=== PATIENT | female | born 1955 | race Caucasian/White ===

== ENCOUNTER 2017-04-19 21:40 | Emergency (ER) | payer OTHER ==
[~2017-04-19] VITALS: Ht 160 cm; Wt 59.0 kg
[2017-04-19] MEDS ORDERED: TETANUS/DIPHTHERIA TOXOID ADULT 0.5 ML VIAL IM ONE (21:45)
[2017-04-19] MEDS: LIDOCAINE HCL 1% 50 ML VIAL INFIL ONE ×2 (21:45→22:21)
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
[2017-04-19 21:50] VITALS: BP 158/102; PULSE 78; RESP 18; TEMP 98.2; O2SAT 99
--- NOTE | 2017-04-19 22:27 | RADRPT ---
EXAM DATE/TIME: 04/19/2017 22:01 [facility] COMPARISON: No previous studies available for comparison. INDICATIONS : Trauma. Fall. Right frontal laceration. RADIATION DOSE: 55.86 CTDIvol (mGy) MEDICAL HISTORY : None SURGICAL HISTORY : None. ENCOUNTER: Initial ACUITY: 1 day PAIN SCALE: 0/10 LOCATION: cranial TECHNIQUE: Multiple contiguous axial images were obtained of the head. Using automated exposure control and adj ustment of the mA and/or kV according to patient size, radiation dose was kept as low as reasonably a chievable to obtain optimal diagnostic quality images. DICOM format image data is available electro nically for review and comparison. FINDINGS: There is no evidence for intracranial hemorrhage, mass effect, mass lesions, edema, or extra-axial fl uid collections. The visualized bony structures appear intact. The ventricles are normal size for t he patient's age. There are no signs of acute infarction for technique. There is moderate mucoperios teal thickening within multiple sinuses worse involving the right sinuses. CONCLUSION: Unremarkable study except for chronic sinusitis. Richa Babcock MD on April 19, 2017 at 22:25 Board Certified Radiologist. This report was verified electronically.
--- NOTE | 2017-04-19 22:31 | RADRPT ---
EXAM DATE/TIME: 04/19/2017 22:01 [facility] COMPARISON: No previous studies available for comparison. INDICATIONS : Trauma. Fall. RADIATION DOSE: 24.85 CTDIvol (mGy) MEDICAL HISTORY : None SURGICAL HISTORY : None. ENCOUNTER: Initial ACUITY: 1 day PAIN SCALE: 0/10 LOCATION: neck TECHNIQUE: Volumetric scanning of the cervical spine was performed. Multiplanar reconstructions in the sagittal, coronal and oblique axial planes were performed. Using automated exposure control and adjustment o f the mA and/or kV according to patient size, radiation dose was kept as low as reasonably achievable to obtain optimal diagnostic quality images. DICOM format image data is available electronically f or review and comparison. FINDINGS: No significant subluxation or soft tissue swelling is seen. No definite fracture is seen for techniqu e. C2-C3: No appreciable compromised to the thecal sac, exiting nerve roots are seen. The neural myah marina are patent bilaterally. No appreciable thecal sac stenosis is seen. C3-C4: No appreciable compromised to the thecal sac, exiting nerve roots are seen. The neural myah marina are patent bilaterally. No appreciable thecal sac stenosis is seen. C4-C5: No appreciable compromised to the thecal sac, exiting nerve roots are seen. The neural myah marina are patent bilaterally. No appreciable thecal sac stenosis is seen. C5-C6: No appreciable compromised to the thecal sac, exiting nerve roots are seen. The neural myah marina are patent bilaterally. No appreciable thecal sac stenosis is seen. C6-C7: No appreciable compromised to the thecal sac, exiting nerve roots are seen. The neural myah marina are patent bilaterally. No appreciable thecal sac stenosis is seen. C7-T1: No appreciable compromised to the thecal sac, exiting nerve roots are seen. The neural myah marina are patent bilaterally. No appreciable thecal sac stenosis is seen CONCLUSION: Unremarkable study. Richa Babcock MD on April 19, 2017 at 22:27 Board Certified Radiologist. This report was verified electronically.
[2017-04-19] MEDS ORDERED: LIDOCAINE HCL 1% 50 ML VIAL INFIL ONE (22:45)
[2017-04-19 23:02] VITALS: BP 143/91
== END 2017-04-19 23:05 | disposition home or self-care (01) ==
LOC: PHED 21:40
DX: S01.81XA Laceration without foreign body of other part of head, initial encounter (principal); F10.920 Alcohol use, unspecified with intoxication, uncomplicated; W19.XXXA Unspecified fall, initial encounter; Z23 Encounter for immunization
CPT/HCPCS: 12011; 70450; 72125; 90471; 90714

== ENCOUNTER 2017-08-10 00:52 | Emergency (ER) | payer OTHER ==
[~2017-08-10] VITALS: Ht 160 cm; Wt 60.0 kg
[2017-08-10 01:07] VITALS: BP 107/75; PULSE 79; RESP 16; TEMP 98.7; O2SAT 96
[2017-08-10] MEDS ORDERED: SODIUM CHLOR 0.9% 1000 ML INJ 1,000 ML IV ONE (01:30)
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
[2017-08-10] MEDS ORDERED: PROPOFOL 200 MG/20 ML AMP IV ONE (02:00)
--- NOTE | 2017-08-10 02:00 | RADRPT ---
EXAM DATE/TIME: 08/10/2017 01:46 [facility] COMPARISON: No previous studies available for comparison. INDICATIONS : Evaluate for pneumonia, pneumothorax, or communicable disease. Pre op left wrist. MEDICAL HISTORY : None. SURGICAL HISTORY : None. ENCOUNTER: Initial ACUITY: 1 day PAIN SCORE: 0/10 LOCATION: Bilateral chest FINDINGS: A single view of the chest demonstrates the lungs to be symmetrically aerated without evidence of mas s, infiltrate or effusion. The cardiomediastinal contours are unremarkable. Osseous structures are intact. CONCLUSION: Normal examination. Steve Feliciano MD on August 10, 2017 at 1:57 Board Certified Radiologist. This report was verified electronically.
--- NOTE | 2017-08-10 02:01 | RADRPT ---
EXAM DATE/TIME: 08/10/2017 01:39 [facility] COMPARISON: No previous studies available for comparison. INDICATIONS : Left wrist pain post fall. MEDICAL HISTORY : None. SURGICAL HISTORY : None. ENCOUNTER: Initial ACUITY: 1 day PAIN SCORE: 7/10 LOCATION: Left upper extremity FINDINGS: There is an impacted and displaced fracture of the distal ulnar metaphysis, as well as the distal rad ial metaphysis with dorsal angulation of the distal radius fracture site and dorsal displacement of t he distal ulnar fracture fragment. There appears to be intra-articular extension of the distal radial fracture. CONCLUSION: Distal ulna and radial fractures are identified. Steve Feliciano MD on August 10, 2017 at 1:57 Board Certified Radiologist. This report was verified electronically.
[2017-08-10 02:07] LABS: AUTOMATED NEUTROPHIL # 3.6 TH/MM3 (1.8-7.7); BASOPHIL # 0.2 TH/MM3 (0-0.2); BASOPHIL % 2.5 % (0.0-2.0); EOSINOPHIL # 0.2 TH/MM3 (0-0.4); EOSINOPHIL % 2.4 % (0.0-4.0); HEMOGLOBIN 13.4 GM/DL (11.6-15.3); LYMPH % 44.4 % (9.0-44.0); LYMPHOCYTE # 3.6 TH/MM3 (1.0-4.8); MEAN CELL VOLUME 93.9 FL (80.0-100.0); MEAN CORPUSCULAR HEMOGLOBIN 32.2 PG (27.0-34.0); MEAN CORPUSCULAR HGB CONC 34.3 % (32.0-36.0); MONO % 6.3 % (0.0-8.0); MONOCYTE # 0.5 TH/MM3 (0-0.9); NEUT % 44.4 % (16.0-70.0); PLATELET COUNT 244 TH/MM3 (150-450); RED BLOOD COUNT 4.16 MIL/MM3 (4.00-5.30); RED CELL DISTRIBUTION WIDTH 13.7 % (11.6-17.2); WHITE BLOOD COUNT 8.1 TH/MM3 (4.0-11.0)
[2017-08-10] MEDS ORDERED: BUPIVACAINE HCL PF 0.5% 30 ML VIAL INFIL ONE (02:15)
[2017-08-10 02:22] LABS: PROTHROMBIN TIME - PATIENT 10.3 SEC (9.8-11.6)
[2017-08-10 02:24] LABS: ALKALINE PHOSPHATASE 86 U/L (45-117); TOTAL BILIRUBIN ADULT 0.2 MG/DL (0.2-1.0); TOTAL PROTEIN 7.9 GM/DL (6.4-8.2)
[2017-08-10 02:32] LABS: ALBUMIN 3.9 GM/DL (3.4-5.0); ALT (GPT) 29 U/L (10-53); AST (GOT) 34 U/L (15-37); BICARBONATE 22.3 MEQ/L (21.0-32.0); BLOOD UREA NITROGEN 12 MG/DL (7-18); CALCIUM 8.5 MG/DL (8.5-10.1); CHLORIDE 111 MEQ/L (98-107); CREATININE 0.72 MG/DL (0.50-1.00); GLOMERULAR FILTRATION RATE 82 ML/MIN (>89); GLUCOSE,RANDOM 106 MG/DL (74-106); SODIUM (NA) 143 MEQ/L (136-145)
--- NOTE | 2017-08-10 03:07 | RADRPT ---
EXAM DATE/TIME: 08/10/2017 02:56 [facility] COMPARISON: WRIST LEFT COMPLETE ([id number]), August 10, 2017, 1:39. INDICATIONS : Post reduction left wrist. MEDICAL HISTORY : None. SURGICAL HISTORY : None. ENCOUNTER: Subsequent ACUITY: 1 day PAIN SCORE: 5/10 LOCATION: Left upper extremity FINDINGS: Patient is status post cast placement with interval reduction of the distal radius ulnar fractures. T here is slight impaction of the distal radial fracture but excellent alignment is noted of the distal radius and ulna. CONCLUSION: Interval reduction and cast placement. Steve Feliciano MD on August 10, 2017 at 3:04 Board Certified Radiologist. This report was verified electronically.
[2017-08-10] MEDS ORDERED: NORC5TAB PO (03:37)
[2017-08-10 04:10] VITALS: BP 112/64
== END 2017-08-10 04:12 | disposition home or self-care (01) ==
LOC: NEPD 00:52
DX: S52.502A Unspecified fracture of the lower end of left radius, initial encounter for closed fracture (principal); S52.602A Unspecified fracture of lower end of left ulna, initial encounter for closed fracture; Y93.41 Activity, dancing; Z72.0 Tobacco use
CPT/HCPCS: 25605; 71045; 73100; 73110; 80053; 85025; 85610; 85730; 86850; 86900; 86901; 99284; J7030; 29125

== ENCOUNTER → 2017-08-17 | Day surgery (SDC) | payer OTHER ==
[~2017-08-17] MED LIST: BUPIVACAINE HCL PF 0.75% 30 ML VIAL ONE; LACTATED RINGER'S 1000 ML INJ 1,000 ML ONE; LIDOCAINE 1.5%/EPINEPHrine 1:200,000 PF SOLN 30 ML AMP ONE; MIDAZOLAM HCL 5 MG/ML VIAL (1 ML) ONE; NORC5TAB PO; ONDANSETRON HCL 4 MG/2 ML VIAL IV PUSH ONE; PROPOFOL 100 MG/10 ML INJ IV ONE; SODIUM CHLORIDE 0.9% 100 ML ADDBAG IV ONE; ceFAZolin INJ 1,000 MG VIAL ONE
--- NOTE | 2017-08-17 23:01 | MP ---
cc: DEANNE ESPINAL DATE OF SURGERY: 08/17/2017 PREOPERATIVE DIAGNOSIS: Left distal radius fracture. POSTOPERATIVE DIAGNOSES Left distal radius fracture. PROCEDURE Open reduction internal fixation left intra-articular distal radius fracture greater than three intra-articular fragments. SURGEON Dr. Deanne Espinal LITIGATOR: SASHA Rice ANESTHESIA General with a regional nerve block. ESTIMATED BLOOD LOSS: Less than 50 cc TOURNIQUET TIME: Zero. COMPLICATIONS: None. IMPLANTS: Synthes. JUSTIFICATION: This patient is a 62-year-old female who fell staining comminuted displaced left intra-articular distal radius fracture. She was evaluated by the undersigned at the [facility]. The patient was counseled as to the risks, benefits and alternatives of the above named surgical procedure. She did wish to proceed with surgery. PROCEDURE IN DETAIL: A written consent was obtained. The patient identified by name band, taken to the operating room, placed supine on the operating room table. General anesthesia was administered as well as 2 grams of IV Ancef. The left upper extremity prepped and draped using isopropyl alcohol, Hibiclens solution and DuraPrep solution. After time out was performed, a longitudinal incision was made over the volar aspect of the left wrist. The flexor carpi radialis tendon sheath was incised and the pronator musculature elevated off the radial aspect of the distal radius. Multiple K-wires used to reconstruct and repair the joint surface and subsequently a Synthes volar distal radius locking plate was applied to the volar aspect of the distal radius. A combination of both locking non-locking screws were used for fixation. Fluoroscopic imaging confirmed hardware placement and fracture reduction. The K-wires were removed and the fracture showed good stability. The surgical wound was thoroughly irrigated with sterile saline solution. The pronator layers as well as the subcutaneous layer closed with 3-0 Vicryl suture. Incision closed with 4-0 nylon. Sterile dressing applied. The patient was placed in a well-padded splint. The patient tolerated the procedure well. No intraoperative complications noted. Will Chávez physician therapist's assistant, certified, was present during the entire procedure to include patient positioning and the procedure itself. The medical necessity of the physician therapist's assistant is indicated in this case due to the complexity of the procedure. He assisted with appropriate manipulation of the arm. He assisted with both achieving and maintaining fracture reduction along with implantation of internal fixation device. MD LEO Villeda/STEPHEN /4:34 PM /10:44 PM
== END | disposition home or self-care (01) ==
LOC: ESDC 13:51
PROVIDERS: ATTEND Orthopaedic Surgery Sports Medicine
DX: S52.572A Other intraarticular fracture of lower end of left radius, initial encounter for closed fracture (principal)
CPT/HCPCS: 01830; 25609; 73100; 76000; 76942; C1713; J0690; J2250; J2405; J7120